=== PATIENT | male | born 1960 | race Native Hawaiian/Other Pacific Islander ===

== ENCOUNTER 2019-04-02 10:33 | Outpatient (CLI) | payer OTHER ==
[2019-04-02 12:06] LABS: PLATELET COUNT 163 K/uL (142-355)
[2019-04-02 12:20] LABS: POTASSIUM 4.6 mmol/L (3.6-5.2)
== END 2019-04-02 19:25 | disposition home or self-care (01) ==
LOC: LABW 10:33
PROVIDERS: Physician Assistant
DX: Z01.818 Encounter for other preprocedural examination (principal); I10 Essential (primary) hypertension; E11.9 Type 2 diabetes mellitus without complications
CPT/HCPCS: 36415; 80053; 80061; 84154; 84443; 85027; 93005